=== PATIENT | female | born 1985 | race Caucasian/White ===

== ENCOUNTER 2018-06-30 15:13 | Day surgery (SDC) | payer BC ==
[2018-06-30] MEDS ORDERED: NS 0.9% 1000 ML* 1,000 ML IV ONE (15:22)
--- OUTSIDE RECORDS SUMMARY | 2018-06-30 15:40 | XMS REPORT ---
:1985 External Reference #:[id number] Author Organization [facility] Address [address] [place] [address] Phone [phone] Care Team Providers Name Role Phone Delmy Lassiter M.D. Care Team Information Research Dairy Farm Supervisor Unavailable Delmy Lassiter M.D. Primary Care Physician Unavailable Payers Type Date Identification Numbers Payment Provider Subscriber Commercial Effective: Policy Number: [id number] BC/BS Of [place] Alia Caban 2016 PayID: [id number] [place] [id number] Problems Description No Information Family History Date Family Member(s) Problem(s) Comments Father due to sudden cardiac () - age 56 arrythmia Mother 62 Social History Type Date Description Comments Marital Status Single Marital Status Significant Other Lives With Alone Occupation medical laboratory scientist biotech Cigarette Use Nonsmoker ETOH Use Denies alcohol use Recreational Drug Use Denies Drug Use Smoking Nonsmoker Daily Caffeine Some Caffeine decaf , occ soda Exercise Type/Frequency Exercises regularly crossfit 5 days a week Seat Belt/Car Seat Always uses seat belt Personal Habits Text feels safe at home, work and community Allergies, Adverse Reactions, Alerts Date Description Reaction Status Severity Comments 07/15/2016 NKDA active Medications Medication Date Status Form Strength Qnty SIG Indications Ordering Provider Mirena (52 MG) Active IUD 20mcg/24HR Sep 2012 Unknown 000 Amoxicillin Hx Capsules 500mg 20caps 1 by J01.90 Gini Mancilla 017 - mouth Manzo, twice a NEONATAL INTENSIVE CARE NURSE 017 day Medications Administered in Office Medication Date Status Form Strength Qnty SIG Indications Ordering Provider TB Intradermal Administered Injection Halley Daniel 017 PB Renner TB Intradermal Administered Injection Sonia Test 016 Juan Mercedes-Serg Immunizations CPT Code Status Date Vaccine Lot # [id number] Given 05/16/2018 Influenza Vac, Quadriv[place], [place] [id number] Given 07/17/2017 Influenza vac quadrivalent preservative free 3yrs [id number] and up Vital Signs Date Vital Result Comment 06/29/2018 BP Systolic 140 mmHg BP Diastolic 80 mmHg Heart Rate 68 /min Body Temperature 98.0 F Respiratory Rate 16 /min Height 65.5 inches 5'5.50" Weight 157.00 lb BMI (Body Mass Index) 25.7 kg/m2 07/17/2017 BP Systolic 112 mmHg BP Diastolic 82 mmHg Heart Rate 78 /min Body Temperature 98.1 F Height 65.5 inches 5'5.50" Weight 157.50 lb BMI (Body Mass Index) 25.8 kg/m2 06/26/2017 BP Systolic 118 mmHg BP Diastolic 80 mmHg Heart Rate 76 /min Body Temperature 97.5 F Height 65.5 inches 5'5.50" Weight 158.00 lb BMI (Body Mass Index) 25.9 kg/m2 03/13/2017 BP Systolic 120 mmHg BP Diastolic 70 mmHg Heart Rate 60 /min Body Temperature 98.0 F Respiratory Rate 18 /min Height 65.5 inches 5'5.50" Weight 158.00 lb BMI (Body Mass Index) 25.9 kg/m2 07/15/2016 BP Systolic 118 mmHg BP Diastolic 70 mmHg Heart Rate 74 /min Respiratory Rate 16 /min Height 65.5 inches 5'5.50" Weight 162.00 lb BMI (Body Mass Index) 26.5 kg/m2 Results Test Date Test Result H/L Range Note Laboratory test finding 06/29/2018 hCG, Beta Subunit, Qnt, <pending> Serum Urine (Fma) 06/29/2018 SP Grav 1.025 Urine, (Fma/CMC/CTX) POSSITIVE Lipid Profile 07/17/2017 Cholesterol 229 mg/dL High 120-200 Triglycerides 58 mg/dL 30-200 HDL Cholesterol 72 mg/dL 30-85 LDL (Calculated) 145 CALC High 0-129 VLDL Cholesterol 12 mg/dL 0-50 HDL Risk Factor 3.2 CALC 0.0-4.4 Chlamydia/GC/Trichomona 07/17/2017 Chlamydia by Giselle Negative Negative 1 , 2 Gonococcus by Giselle Negative Negative 1, 3 Trich vag by Giselle Negative Negative 1, 4 Laboratory test finding 07/17/2017 RPR Non Reactive Non Reactive 1 Laboratory test finding 07/17/2017 HIV 1&2 Antibody negative Negative Screen (Fma) Age 1207/17/2017 Age 30-65 Diagn See Comment: 5 Recomm See Comment: 6 Adeq See Comment: 7 Cicd10 See Comment: 8 Perfor See Comment: 9 Signed See Comment: 10 Comm . Note See Comment: 11 Iglbp See Comment: 12 HPV Aptima Positive Negative 13 HPV Genotype 16 Negative Negative HPV Genotype 18,45 Negative Negative Laboratory test finding 07/17/2017 PDF [id number] SEE IMAGE Complete Blood Count 07/15/2016 WBC 6.2 x10^3/UL 3.6-9.6 RBC 3.97 x10^6/UL 3.90-5.70 HGB 12.7 g/dL 12.1-17.2 HCT 37 % 36-50 MCV 93.0 fL 82.2-97.4 MCH 31.9 pg 27.6-33.3 MCHC 34.4 g/dL 33.0-35.5 RDW 13.6 % 11.6-13.7 PLT 212 x10^3/UL 150-400 MPV 6.7 fL Low 7.4-10.4 Gran # 3.7 x10^3/UL 1.5-7.2 Lymph# 2.3 x10^3/UL 0.7-4.9 King# 0.2 x10^3/UL 0.1-0.9 Gran % 56.8 % 42.2-75.2 Lymph % 38.4 % 20.5-51.1 King% 4.8 % 1.7-9.3 Comprehensive Metabolic Prof 07/15/2016 Sodium 137 mEq/L 134-149 Potassium 4.2 mEq/L 3.6-5.5 Chloride 99 mEq/L 94-112 Carbon Dioxide 22 mEq/L 21-32 Glucose 86 mg/dL 70-105 BUN 16 mg/dL 6-26 Creatinine 0.8 mg/dL 0.6-1.4 BUN/Creat Ratio 20.0 CALC 8.0-36.0 Calcium 9.4 mg/dL 8.6-10.2 Total Protein 6.8 g/dL 6.4-8.3 Albumin 4.6 g/dL 3.8-5.5 Globulin 2.2 g/dL 2.0-4.8 A/G Ratio 2.1 CALC 0.6-2.3 Alk. Phosphatase 53 U/L 30-110 Alt (SGPT) 18 U/L 7-35 Ast (Sgot) 29 U/L 5-34 Total Bilirubin 0.7 mg/dL 0.2-1.3 GFR Non- >60 ml/min/1.73m^ >=60 GFR >60 ml/min/1.73m^ >=60 Lipid Profile 07/15/2016 Cholesterol 217 mg/dL High 120-200 Triglycerides 64 mg/dL 30-200 HDL Cholesterol 54 mg/dL 30-85 LDL (Calculated) 150 CALC High 0-129 VLDL Cholesterol 13 mg/dL 0-50 HDL Risk Factor 4.0 CALC 0.0-4.4 Laboratory test finding 07/15/2016 TSH 1.07 mIU/L 0.50-6.00 Free T4 0.97 ng/dL 0.75-1.54 1 SRC:vaginal 1 orange aptim a 2 Source of Specimen: vaginal 1 orange aptim 3 Source of Specimen: vaginal 1 orange aptim 4 Source of Specimen: vaginal 1 orange aptim 5 NEGATIVE FOR INTRAEPITHELIAL LESION AND MALIGNANCY. REACTIVE CELLULAR CHANGES AND/OR REPAIR ARE PRESENT. 6 Suggest follow up as clinically appropriate. 7 Satisfactory for evaluation. Endocervical and/or squamous metaplastic cells (endocervical component) are present. 8 Z12.4 9 Sandrine Win, Gear Technician (ASCP) 10 Cam Arcos MD, Pathologist 11 The Pap smear is a screening test designed to aid in the detection of premalignant and malignant conditions of the uterine cervix. It is not a diagnostic procedure and should not be used as the sole means of detecting cervical cancer. Both false-positive and false-negative reports do occur. 12 This liquid based ThinPrep(R) pap test was screened with the use of an image guided system. 13 This test detects fourteen high-risk HPV types (16/18/31/33/35/39/45/ 51/52/56/58/59/66/68) without differentiation. Procedures Description No Information Encounters Type Date Location Provider CPT E/M Dx Office Visit 07/20/2017 8:30a Main Office Delmy Lassiter M.D. 01065 Z11.1 Office Visit 07/17/2017 9:00a [facility] Halley Renner, NEONATAL INTENSIVE CARE NURSE 72158 Z00.00 Z11.1 Z11.4 Z23 Office Visit 06/26/2017 10:45a [place] [address] J01.90 Office Visit 03/13/2017 9:30a [place] [address] S97.82xA W23.1xxA Office Visit 07/17/2016 2:30p [facility] Ryan Cole 25974 Z11.1 Office Visit 07/15/2016 1:00p [facility] Juan Cole-Serg 74182 Z00.00 Z11.1 Plan of Care Future Appointment(s):07/20/2018 2:30 pm - NATE ChildressP at Main T[facility]7806/29/2018 - Halley Renner, NPZ32.01 Encounter for test, result positiveNew Xrays:Ultrasound Uterus TransvaginalComments:We will pursue testing today to determine what treatment you will need.Z97.5 Presence of (intrauterine) contraceptive deviceAllComments:1. Patient has been queried about patient's goals/preferences and functional/lifestyle goals at relevant visits. If relevant, describe: Has been discussed, noted above2. Treatment goals as explainedto the patient: see above3. Are there barriers to meeting treatment goals? Yes If Yes, please describe: Barriers include possible insurance limits, disease process, and difficulty with lifestyle changes4. Self-Management goals as described to the patient: Yes, see above As always, we strongly encourage a healthy diet and making physical activity a part of your every day life. If you have questions about how or where to start, please contact the office.
--- NOTE | 2018-06-30 15:51 | ED ---
- HPI Summary HPI Summary: This pt is a 33 y/o female presenting to [facility] for a left ectopic . Pt has an IUD in place. Pt notes 1 month ago pt had vaginal bleeding and had abdominal cramping for that 1 month. Denies any vaginal bleeding, vaginal discharge today. She states she took a test yesterday and it resulted positive. [facility] for today. Her US today shows left ectopic . Pt notes she had heavy abd cramping yesterday and today she has light abd cramping. Pt took Ibuprofen yesterday with relief. Denies SOB, chest pain, nausea, vomiting. She reports feeling well overall and even went to the gym today. Pt last ate an apple today at 15:00. No PMHx. Denies tobacco, drug, and alcohol use. - History of Current Complaint Chief Complaint: EDGeneral Stated Complaint: ECTOPIC PREG [place] [facility] [place] Obtained From: Patient Chief Complaint: Other: - abdominal cramping Onset/Duration: Started Days Ago, Still Present Timing: Lasting Days Severity: Moderate Current Severity: Mild Pain Intensity: 1 Character: Cramping Aggravating Factors: Nothing Alleviating Factors: Nothing Associated Signs and Symptoms: Positive: Negative - Allergies/Home Medications Allergies/Adverse Reactions: Allergies Allergy/AdvReac Type Severity Reaction Status Date / Time No Known Allergies Allergy Verified 06/30/18 15:27 PMH/Surg Hx/FS Hx/Imm Hx Endocrine/Hematology History: Denies: Hx Diabetes Cardiovascular History: Denies: Hx Hypertension Infectious Disease History: No Infectious Disease History: Denies: Traveled Outside the [place] in Last 30 Days - Family History Known Family History: Negative: Cardiac Disease - Social History Alcohol Use: None Substance Use Type: Reports: None Smoking Status (MU): Never Smoked Tobacco Review of Systems Negative: Fever, Chills Negative: Chest Pain Negative: Shortness Of Breath Positive: Abdominal Pain. Negative: Vomiting, Nausea All Other Systems Reviewed And Are Negative: Yes Physical Exam - Summary Physical Exam Summary: Appearance: Well appearing, no pain distress Skin: warm, dry, reflects adequate perfusion Head/face: normal Eyes: EOMI, KIKO ENT: normal Neck: supple, nontender Respiratory: CTA, breath sounds present Cardiovascular: RRR, pulses symmetrical Abdomen: nontender, soft Musculoskeletal: normal, strength/ROM intact Neuro: normal, sensory motor intact, A&Ox3 - Physical Exam Triage Information Reviewed: Yes Vital Signs On Initial Exam: Initial Vitals Temp Pulse Resp BP Pulse Ox 99.0 F 68 20 139/83 100 06/30/18 15:23 06/30/18 15:23 06/30/18 15:23 06/30/18 15:23 06/30/18 15:23 Vital Signs Reviewed: Yes Diagnostics - Vital Signs Vital Signs Temp Pulse Resp BP Pulse Ox 06/30/18 15:23 99.0 F 68 20 139/83 100 - Laboratory Result Diagrams: 06/30/18 16:02 06/30/18 16:02 Lab Statement: Any lab studies that have been ordered have been reviewed, and results considered in the medical decision making process. Course/Dx - Course Assessment/Plan: Pt is a 33 y/o female, with no PMHx, who presents for a left ectopic . Pt has an IUD in place. Pt notes 1 month ago pt had vaginal bleeding and had abdominal cramping for that 1 month. Denies any vaginal bleeding, vaginal discharge today. She states she took a test yesterday and it resulted positive. [facility] and [facility] for today. Her US today shows left ectopic . Pt notes she had heavy abd cramping yesterday and today she has light abd cramping. Pt took Ibuprofen yesterday with relief. Denies SOB, chest pain, nausea, vomiting. Blood work was obtained. US Transvaginal IMPRESSION: There is thick-walled mass in the left adnexa which appears to be extra ovarian in nature measuring 4.5 x 3.4 x 4.2 cm. This is suspicious for ectopic . Thick-walled cyst is noted in the right ovary. Small amount of free fluid is noted. IUD is in placed. Final dx is ectopic . Dr. Henriquez accepts pt for admission. Pt is agreeable with this plan. - Differential Diagnosis/HQI/PQRI: Ectopic - Diagnoses Provider Diagnoses: Ectopic - Provider Notifications Discussed Care Of Patient With: Nata Henriquez Time Discussed With Above Provider: 16:20 Instructed by Provider To: Admit As Inpatient - Dr. Henriquez accepts pt for admission. - Critical Care Time Critical Care Time: 30-74 min Discharge - Sign-Out/Discharge Documenting (check all that apply): Patient Departure - Admit - Discharge Plan Condition: Stable Disposition: ADMITTED TO [facility] Referrals: Lindy Trujillo NP [Primary Care Provider] - - Billing Disposition and Condition Condition: STABLE Disposition: Admitted to [facility] - Attestation Statements Document Initiated by Pabloibe: Yes Documenting Scribe: Karlee Boothe Provider For Whom Scribe is Documenting (Include Credential): Oseas Ruiz MD Scribe Attestation: Karlee Mccollum scribed for Oseas Ruiz MD on 06/30/18 at 1638. Scribe Documentation Reviewed: Yes Provider Attestation: The documentation as recorded by the Karlee díaz accurately reflects the service I personally performed and the decisions made by Oseas rosales MD Status of Scribe Document: Viewed
[2018-06-30 16:16] LABS: ABS Basophils 0 10^3/ul (0-0.2); ABS Eosinophils 0 10^3/ul (0-0.6); ABS Lymphocytes 1.9 10^3/ul (1.0-4.8); ABS Monocytes 0.5 10^3/ul (0-0.8); ABS Neutrophils 4.2 10^3/ul (1.5-7.7); ABS Nucleated RBC 0 10^3/ul; Eosinophil % 0.7 %; Hematocrit 34 % (35-47); Hemoglobin 11.6 g/dl (12.0-16.0); Lymphocyte % 28.7 %; Mean Corpuscular HGB Conc 34 g/dl (31-36); Mean Corpuscular Hemoglobin 32 pg (27-31); Mean Corpuscular Volume 93 fL (80-97); Mean Platelet Volume 7.5 fL (7.4-10.4); Nucleated Red Blood Cells % 0.2; Platelet Count 205 10^3/ul (150-450); Red Blood Count 3.62 10^6/ul (4.00-5.40); Red Cell Distribution Width 13 % (10.5-15); White Blood Count 6.7 10^3/ul (3.5-10.8)
[2018-06-30 16:26] LABS: INR 0.93 (0.77-1.02)
[2018-06-30 16:36] LABS: EGFR Non-African American 79.2 (>60)
--- NOTE | 2018-06-30 18:30 | HP ---
History of Present Illness - History of Present Illness Reason for Visit: Ectopic History of Present Illness: Pt is a 33yo G1, dx with this week. Has had Mirena IUD for several years, so this was not planned. HCG quant was 33,000. U/S today showed no IUD and left adnexa with 4.5cm mass consistent with likely ectopic . Pt denies any significant pain or vaginal bleeding. Pt referred to ER after these findings in Imaging. FP provider contacted me. - Past Medical History Grav: 1 Ab: 1 - current ectopic - Past Surgical History Past Surgical History: Other - left ulna fracture - Past Social History Smoke: No Alcohol: None Drugs: None Review of Systems - Review of Systems Constitutional: Negative: Fever, Chills, Sweats, Weakness, Malaise, Other Respiratory: Negative: Cough, Dry, Shortness of Breath, Hemoptysis, SOB with Excertion, Pleuritic Pain, Sputum, Wheezing Cardiovascular: Negative: Chest Pain, Palpitations, Orthopnea, Paroxysmal Noc. Dyspnea, Edema, Light Headedness, Other Gastrointestinal: Negative: Nausea, Vomiting, Abdominal Pain, Diarrhea, Constipation, Melena, Hematochezia, Other Genitourinary: Negative: Dysuria, Frequency, Incontinence, Hematuria, Retention , Other - Medications/Allergies Allergies/Adverse Reactions: Allergies Allergy/AdvReac Type Severity Reaction Status Date / Time No Known Allergies Allergy Verified 06/30/18 15:27 Medications: Current Medications Sodium Chloride (Ns 0.9% 1000 Ml*) 1,000 mls @ 100 mls/hr IV ED ONCE ONE Stop: 07/01/18 01:21 Exam - Exam Vital Signs: Vital Signs (72 hours) 06/30/18 15:23 Temperature 99.0 F Pulse Rate 68 Respiratory 20 Rate Blood Pressure 139/83 (mmHg) O2 Sat by Pulse 100 Oximetry General: Alert, Oriented x3, Cooperative, No acute distress Lungs: Clear to auscultation Cardiovascular: Regular rate Abdomen: Soft, No tenderness Skin: No rashes Psych/Mental Status: Mental status NL, Mood NL Assessment/Plan - Assessment/Plan Assessment: 33yo G1 with HCG and ultrasound consistent with left ectopic . Currently asymptomatic, but significant enough that treatment is indicated today. Also MTX is contraindicated in such a high HCG. Plan: Recommend laparoscopic evaluation, likely left salpingectomy. Discussed risks of surgery at length including bleeding, transfusion, infection , organ injury, removal of a fallopian tube and/or ovary. Consent signed, all questions answered.
[2018-07-01] MEDS ORDERED: Midazolam* 1 MG/ML 2 ML VIAL (2 MG) ONE (00:20)
[2018-07-01] MEDS ORDERED: Scopolamine 1.5 mg* PATCH ONE (01:10)
[2018-07-01] MEDS ORDERED: fentaNYL* 50 MCG/ML 2 ML VIAL (100 MCG VIAL) ONE (01:14)
[2018-07-01] MEDS ORDERED: Ibuprofen TAB* 600 MG PO PRN (01:31)
[2018-07-01] MEDS ORDERED: Lidocaine 2% PF * 5 ML VIAL ONE (01:55)
[2018-07-01] MEDS ORDERED: Succinylcholine* 20 MG/ML 10 ML VIAL ONE (01:55)
[2018-07-01] MEDS ORDERED: Propofol* 10 MG/ML 20 ML BTL ONE (01:55)
[2018-07-01] MEDS ORDERED: Ketorolac INJ* 30 MG/ML 1 ML VIAL ONE (01:55)
[2018-07-01] MEDS ORDERED: Ondansetron INJ* 2 MG/ML VIAL ONE (01:55)
[2018-07-01] MEDS ORDERED: Bupivacaine 0.25% SDV PF* 10 ML VIAL INJ ONE (01:55)
[2018-07-01] MEDS ORDERED: Dexamethasone IV* 4 MG/ML 1 ML (4 MG) ONE (01:55)
[2018-07-01] MEDS ORDERED: oxyCODONE/Acetamin 5/325 MG* TAB PO PRN ×2 (03:02→03:03)
[2018-07-01] MEDS ORDERED: Acetaminophen TAB* 325 MG PO PRN (03:03)
[2018-07-01] MEDS ORDERED: HYDROmorphone INJ1* 1 MG/ML SYRINGE IV PRN (03:03)
[2018-07-01] MEDS ORDERED: Naloxone* 0.4 MG/ML 1 ML VIAL IV PRN (03:03)
[2018-07-01] MEDS ORDERED: Metoclopramide IV* 5 MG/ML 2 ML VIAL IV PRN (03:03)
[2018-07-01] MEDS ORDERED: Ondansetron INJ* 2 MG/ML VIAL IV PRN (03:03)
[2018-07-01] MEDS ORDERED: PROCHLORPERAZINE INJ 5 MG/ML 2 ML VIAL IV PRN (03:03)
[2018-07-01 11:01] VITALS: BP 101/38
--- NOTE | 2018-07-11 02:42 | OP ---
OPERATIVE REPORT: DATE OF OPERATION: 07/01/18 DATE OF : 85 SURGEON: Nata Henriquez MD LICENSED INVESTMENT SALES ASSISTANT: None. ANESTHESIOLOGIST: Dr. Krause. ANESTHESIA: General. PRE-OP DIAGNOSIS: Left ectopic . POST-OP DIAGNOSIS: Ruptured left ectopic . OPERATIVE PROCEDURES: Laparoscopic left salpingectomy and evacuation of hemoperitoneum. ESTIMATED BLOOD LOSS: 300 cc. URINE OUTPUT: 50 cc. IV FLUIDS: 1600 cc lactated Ringers. MATERIALS TO LAB: Left fallopian tube with ectopic . INDICATIONS: This patient was a 33-year-old 1 para 0, just diagnosed with this week. The patient was noted to have a HCG level of about 30 ,000 and ultrasound was notable for an approximately 4 cm left adnexal mass consistent with likely ectopic considering there was no evidence of intrauterine . Ultrasound also confirmed her Mirena IUD was still in place in the uterine cavity. The patient was sent directly to the emergency department for admission and from there, she was brought to the operating room. The patient was quite comfortable and did not show any significant signs of distress. She was extensively counseled for laparoscopic evaluation and consent was signed. FINDINGS: Moderate amount of blood throughout the pelvis and coating all of the peritoneum. The left fallopian tube was markedly dilated and had a large clot of blood protruding from the midportion of the tube. The right fallopian tube, bilateral ovaries and uterus otherwise appeared normal. COMPLICATIONS: None. DESCRIPTION OF PROCEDURE: The risks, benefits, and alternatives were described to the patient and informed consent was obtained. The patient was taken to the operating room with IV running, where general anesthesia was induced and found to be adequate. The patient was prepped and draped in the normal sterile fashion in the high lithotomy position in [facility]. A time-out was performed. A Orr catheter was placed. A bivalved speculum was placed in the vagina and a Hulka tenaculum was placed in the cervix for manipulation. The speculum was then removed, and the patient was returned to the low lithotomy position. Attention was then turned to the abdomen and gloves were changed. 0.25% Marcaine was then injected into the umbilicus. It was also injected about 2 to 3 cm above the pubic symphysis in the midline and also in the right lower quadrant. A 5-mm incision was made in the umbilicus and penetrating towel clamps were placed on either side of the umbilicus to elevate the skin. A 5-mm bladeless trocar was then placed into the abdominal cavity without difficulty. The abdomen was insufflated with carbon dioxide gas to a maximum pressure of 50 mmHg. There was no visible trauma or bleeding below the trocar site. The findings are noted above. A 5-mm incision was made in the right lower quadrant and another 5-mm bladeless trocar was placed at that site. A 12-mm incision and trocar were then placed in the suprapubic incision. The patient was placed in the Trendelenburg position. A moderate amount of blood was then suctioned in order to get adequate visualization of the left adnexal area. During manipulation of the left tube, some of the clot was broken up and did start to have some new bleeding. A LigaSure device was then prepared and used to coagulate and transect the fallopian tube about 2 cm from the cornua. The fimbriated end was then coagulated and disconnected from the ovarian connection. The mesosalpinx was also taken down using the LigaSure. At that time, there was no active bleeding present. The tube and extruding contents were placed into a 10-mm Endo Catch bag. This was taken out through the suprapubic incision site without difficulty. Total of about 2 L of normal saline was used to irrigate the pelvis and remove all of the visible blood that had been in there. On careful inspection of both adnexa, there was no visible continued bleeding or abnormalities present. At that time, the patient was flattened and the gas was allowed to escape. There was still excellent hemostasis. All 3 trocars were then removed. The incision sites were reapproximated using 4-0 Monocryl in a subcuticular stitch, and all 3 incisions were covered with DermaFlex skin adhesive. The Hulka tenaculum was removed from the cervix and there was good hemostasis. The Orr catheter was also removed. The patient was the allowed to awaken. The patient tolerated the procedure well. Sponge, lap, and and needle counts were correct x2. [id number]/[facility] #: [id number] MTDD
== END 2018-07-01 12:15 | disposition home or self-care (01) ==
LOC: ED 15:13 → OR 16:54 → SSU 18:23 → UNDOADMOB 07-01 03:55 → SSU 07-01 03:55 → OR 07-01 12:15
PROVIDERS: ATTEND Obstetrics & Gynecology
DX: O00.102 Left tubal pregnancy without intrauterine pregnancy (principal); K66.1 Hemoperitoneum
CPT/HCPCS: 36415; 80053; 85025; 85610; 85730; 86850; 86900; 86901; 88305; 99282; A9270-GY; J0330; J1100; J1885; J2250; J2405; J2704; J3010; J3490

== ENCOUNTER 2021-02-13 12:48 | Inpatient (IN) ==
[2021-02-13] MEDS ORDERED: Buffered Lidocaine 1% SYRIN 1 ml INTRADERM ONE ×2 (13:41→15:40)
[2021-02-13] MEDS ORDERED: Lactated Ringers 1000 ml BAG 1,000 ML IV ONE ×2 (15:40→22:49)
[2021-02-13] MEDS ORDERED: Lactated Ringers 1000 ml BAG 1,000 ML IV SCH ×2 (16:00→23:00)
[2021-02-13 16:36] LABS: Urine Benzodiazepine Screen None Detected (None Detect); Urine Cannabinoids Screen None Detected (None Detect); Urine Opiates Screen None Detected (None Detect)
[2021-02-13 20:11] LABS: ABS Lymphocytes 2.4 10^3/ul (1.0-4.8); ABS Monocytes 0.7 10^3/ul (0-0.8); ABS Neutrophils 5.5 10^3/ul (1.5-7.7); Eosinophil % 0.2 %; Hematocrit 38 % (35-47); Hemoglobin 13.2 g/dL (12.0-16.0); Lymphocyte % 27.9 %; Mean Corpuscular HGB Conc 35 g/dL (31-36); Mean Corpuscular Hemoglobin 34 pg (27-31); Mean Corpuscular Volume 97 fL (80-97); Mean Platelet Volume 10.8 fL (7.4-10.4); Platelet Count 139 10^3/uL (150-450); Red Blood Count 3.88 10^6 /uL (3.70-4.87); Red Cell Distribution Width 13 % (10-15); White Blood Count 8.7 10^3/uL (3.5-10.8)
[2021-02-13 20:28] LABS: Albumin 3.6 g/dL (3.2-5.2); Albumin/Globulin Ratio 1.3 (1-3); EGFR African American 103.2 (>60); EGFR Non-African American 85.3 (>60); Globulin 2.8 g/dL (2-4); Potassium 3.8 mmol/L (3.5-5.0); Total Bilirubin 0.5 mg/dL (0.2-1.0); Total Protein 6.4 g/dL (6.4-8.9); Uric Acid 5.3 mg/dL (2.3-6.6)
[2021-02-13] MEDS ORDERED: OBEPIDURAL 250 ML EPIDURAL ONE (22:02)
[2021-02-13] MEDS ORDERED: Phenylephrine 40 mcg/mL 10mL (400mcg) SYRINGE IV PUSH PRN ×2 (22:49)
[2021-02-13] MEDS ORDERED: Lactated Ringers 1000 ml BAG 500 ML IV PRN ×2 (22:49)
[2021-02-13] MEDS ORDERED: EPHEDrine (Pressors) 50 MG/ML VIAL IV PUSH PRN ×2 (22:49)
[2021-02-13] MEDS ORDERED: Sodium Citrate/Citric Acid LIQ 15 ML UDC PO PRN (22:49)
[2021-02-13] MEDS ORDERED: OBEPIDURAL 250 ML EPIDURAL SCH (23:00)
[2021-02-13 23:31] LABS: Urine Appearance Clear; Urine Bilirubin Negative (Negative); Urine Blood Negative (Negative); Urine Color Yellow; Urine Glucose Negative (Negative); Urine Ketones Trace (Negative); Urine Nitrite Negative (Negative); Urine Protein Negative (Negative); Urine Urobilinogen Negative (Negative)
[2021-02-14] MEDS ORDERED: Oxytocin in LR 20 UNITS/1,000 ML BAG IVPB ONE (02:04)
[2021-02-14] MEDS ORDERED: Witch Hazel PAD JAR TOPICAL PRN (03:22)
[2021-02-14] MEDS ORDERED: Glycerin ADULT 2.4 gm SUPP PR PRN (03:22)
[2021-02-14] MEDS ORDERED: Dibucaine 1% OINT 28.35 GM TUBE PR PRN (03:22)
[2021-02-14] MEDS ORDERED: Oxytocin in LR 20 UNITS/1,000 ML BAG IVPB SCH (04:00)
[2021-02-14] MEDS ORDERED: Lactated Ringers 1000 ml BAG 1,000 ML IV SCH (04:00)
[2021-02-14] MEDS ORDERED: Lidocaine 1% VIAL 10 MG/ML VIAL ONE (05:39)
[2021-02-15 07:10] LABS: ABS Lymphocytes 2.1 10^3/ul (1.0-4.8); ABS Monocytes 0.7 10^3/ul (0-0.8); ABS Neutrophils 5.9 10^3/ul (1.5-7.7); Eosinophil % 0.5 %; Hematocrit 33 % (35-47); Hemoglobin 11.7 g/dL (12.0-16.0); Mean Corpuscular HGB Conc 36 g/dL (31-36); Mean Corpuscular Hemoglobin 35 pg (27-31); Mean Corpuscular Volume 98 fL (80-97); Mean Platelet Volume 9.5 fL (7.4-10.4); Platelet Count 123 10^3/uL (150-450); Red Blood Count 3.37 10^6 /uL (3.70-4.87); Red Cell Distribution Width 13 % (10-15); White Blood Count 8.7 10^3/uL (3.5-10.8)
[2021-02-16 08:23] VITALS: BP 134/80
== END 2021-02-16 18:57 | disposition home or self-care (01) | DRG 806 ==
LOC: MCHOBOUT 12:48 → MCHOB 15:46
PROVIDERS: ADMIT Midwife; ATTEND Midwife